=== PATIENT | female | born 1970 | race Caucasian/White ===

== ENCOUNTER → 2018-09-26 | Outpatient (CLI) | payer OTHER ==
[~2018-09-26] MED LIST: IBUP600T22 PO; LOR5/325 PO; ONDA4TAB PO
== END ==
LOC: LAB 19:32
PROVIDERS: ATTEND Physician Assistant
DX: R19.7 Diarrhea, unspecified (principal)
CPT/HCPCS: 82274; 83630; 87045; 87324; 87449